=== PATIENT | female | born 1950 | race Caucasian/White ===

== ENCOUNTER 2020-01-01 22:55 | Emergency (ER) | payer MEDICARE ==
[2020-01-02] MEDS ORDERED: DIPH/PERTUSS(ACELL)/TETANUS VAC/PF 0.5 ML SYR (>=10YO) IM ONE
--- NOTE | 2020-01-02 00:02 | ER Document Report ---
ED Medical Screen (RME) - General Chief Complaint: Arm Injury Stated Complaint: POSSIBLE ARM INJURY Time Seen by Provider: 01/02/20 00:00 Notes: HPI: 69-year-old female who is on Eliquis presenting for evaluation of injury to the left forearm tonight. Patient rolled over in her bed when her phone rang and the bed collapsed landing partially on her left forearm. Patient states she sustained a skin tear on the forearm. Not up-to-date on tetanus vaccination. Denies other injuries or complaints. PHYSICAL EXAMINATION: Moderate bruising and soft tissue swelling to the dorsal left forearm. There is a superficial skin tear that is noted. Sensation intact in the fingertips with capillary refill less than 3 seconds. I have greeted and performed a rapid initial assessment of this patient. A comprehensive ED assessment and evaluation of the patient, analysis of test results and completion of medical decision making process will be conducted by an additional ED providers. Physical Exam - Vital signs Vitals: Temp Pulse Resp BP Pulse Ox 98.0 F 73 14 175/70 H 94 01/01/20 23:02 01/01/20 23:02 01/01/20 23:02 01/01/20 23:02 01/01/20 23:02 Course - Vital Signs Vital signs: Temp Pulse Resp BP Pulse Ox 98.0 F 73 14 175/70 H 94 01/01/20 23:02 01/01/20 23:02 01/01/20 23:02 01/01/20 23:02 01/01/20 23:02
--- NOTE | 2020-01-02 00:18 | ER Document Report ---
HPI - HPI Time Seen by Provider: 01/02/20 00:00 Pain Level: 4 Notes: CHIEF COMPLAINT: Left forearm injury HPI:69-year-old female who is on Eliquis presenting for evaluation of injury to the left forearm tonight. Patient rolled over in her bed when her phone rang and the bed collapsed landing partially on her left forearm. Patient states she sustained a skin tear on the forearm. Not up-to-date on tetanus vaccination. Denies other injuries or complaints. ROS: See HPI - all other systems were reviewed and are otherwise negative Constitutional: no fever Integumentary: Positive rash Allergy: no hives Musculoskeletal: Positive extremity pain or swelling Neurological: no numbness/tingling, no weakness MEDICATIONS: I agree with the patient medications as charted by the RN. ALLERGIES: I agree with the allergies as charted by the RN. PAST MEDICAL HISTORY/PAST SURGICAL HISTORY: Reviewed and agree as charted by RN. SOCIAL HISTORY: Reviewed and agree as charted by RN. FAMILY HISTORY: No significant familial comorbid conditions directly related to patient complaint EXAM: Reviewed vital signs as charted by RN. CONSTITUTIONAL: Alert and oriented and responds appropriately to questions. Well-appearing; well-nourished HEAD: Normocephalic; atraumatic EYES: Conjunctivae clear, sclerae non-icteric ENT: normal nose; no rhinorrhea; moist mucous membranes NECK: Supple without meningismus; non-tender; no cervical lymphadenopathy, no masses CARD: Capillary refill less than 3 seconds; symmetric distal pulses RESP: Normal chest excursion without splinting or tachypnea ABD/GI: Normal bowel sounds; non-distended; soft, non-tender BACK: The back appears normal and is non-tender to palpation, there is no CVA tenderness EXT: Normal ROM in all joints; moderate edema to the dorsal aspect of the left forearm with a superficial skin tear present. There is bruising present. Radial and ulnar pulses are present in the left wrist. No tenderness over the radial head of the left elbow. There is no snuffbox tenderness in the left wrist. Patient is able to fully flex and extend the fingers of the left hand as well as abduct the thumb. SKIN: Normal color for age and race; warm; dry; good turgor; no acute lesions noted NEURO: Moves all extremities equally; Motor and sensory function intact PSYCH: The patient's mood and manner are appropriate. Grooming and personal hygiene are appropriate. MDM: 69-year-old female with contusion to the left forearm, on Eliquis. On my review of the patient's x-ray there is no visible fracture. We will clean and dress the wound area. Update patient's tetanus status Past Medical History - Social History Smoking Status: Never Smoker Family History: Reviewed & Not Pertinent Patient has homicidal ideation: No Course - Vital Signs Vital signs: Temp Pulse Resp BP Pulse Ox 98 F 73 14 175/70 H 94 01/02/20 00:02 01/01/20 23:02 01/01/20 23:02 01/01/20 23:02 01/01/20 23:02 Discharge - Discharge Clinical Impression: Contusion of forearm, left Qualifiers: Encounter type: initial encounter Qualified Code(s): S50.12XA - Contusion of left forearm, initial encounter Condition: Stable Disposition: HOME, SELF-CARE Instructions: Contusion ([facility]) Additional Instructions: Clean the wound daily with soap and water apply small amount of antibiotic ointment and a dressing until healed. Apply cool compresses to the forearm to help with swelling and bruising over the next 48 hours. Follow-up with your primary care provider for reevaluation of symptoms call for appointment. Return for uncontrolled pain or worsening swelling of the forearm. X-ray imaging did not show evidence of a fracture today
--- NOTE | 2020-01-02 00:35 | RADIOLOGY REPORT (SQ) ---
CLINICAL INDICATION: trauma. Pain. TECHNIQUE: 2 view(s) were obtained of the left forearm. COMPARISON: None. FINDINGS: No acute displaced fracture is identified of the forearm. Alignment appears anatomic. Osteoarthritis. Soft tissue swelling. If wrist or elbow are clinically in suspicion, then dedicated radiography is advised. IMPRESSION: No evidence of acute displaced fracture of the forearm.
[2020-01-02 05:09] VITALS: BP 186/66
== END 2020-01-02 01:00 | disposition home or self-care (01) ==
LOC: ER 22:55
DX: S50.12XA Contusion of left forearm, initial encounter (principal); W23.0XXA Caught, crushed, jammed, or pinched between moving objects, initial encounter; Y92.009 Unspecified place in unspecified non-institutional (private) residence as the place of occurrence of the external cause; Z79.02 Long term (current) use of antithrombotics/antiplatelets; Z23 Encounter for immunization
CPT/HCPCS: 90471; 90715; 99283

== ENCOUNTER 2020-01-21 10:24 | Emergency (ER) | payer MEDICARE ==
--- NOTE | 2020-01-21 11:01 | RADIOLOGY REPORT (SQ) ---
EXAM DESCRIPTION: CHEST SINGLE VIEW IMAGES COMPLETED DATE/TIME: 01/21/2020 10:46 am REASON FOR STUDY: SOB COMPARISON: None. EXAM PARAMETERS: NUMBER OF VIEWS: One view. TECHNIQUE: Single frontal radiographic view of the chest acquired. RADIATION DOSE: NA LIMITATIONS: None. FINDINGS: LUNGS AND PLEURA: Small calcified granuloma left lung base. No acute pulmonary consolida tion. No pneumothorax or pleural effusion. MEDIASTINUM AND HILAR STRUCTURES: No masses. Contour normal. HEART AND VASCULAR STRUCTURES: Heart normal in size. Normal vasculature. BONES: No acute findings. HARDWARE: Surgical metallic clips at the base of the neck on the right. OTHER: No other significant finding. IMPRESSION: 1. NO ACUTE RADIOGRAPHIC FINDING IN THE CHEST. TECHNICAL DOCUMENTATION: JOB ID: [id number] 2010 [employer]- All Rights Reserved Reading location - IP/workstation name: [email or web address]
--- NOTE | 2020-01-21 11:36 | ER Document Report ---
ED General - General Chief Complaint: Asthma Exacerbation Stated Complaint: SHORTNESS OF BREATH/CHILLS Time Seen by Provider: 01/21/20 11:11 Mode of Arrival: Ambulatory Information source: Patient - HPI Notes: Patient presents with 2 main complaints. She states that she just moved here several days ago and is out of her medications. She states she has been under a lot of stress and that when she has stress she gets migraines. She states she currently has a migraine headache and is out of her medicines. The pain has been there for 2 days. It is constant. It is in the occipital part of her head. It is constant nothing makes it better or worse. It does feel like her previous migraine pain. Patient also complains of a mild nonproductive cough and some shortness of breath. She states she is out of her asthma medications. She does not know of any known covert virus exposures. - Related Data Allergies/Adverse Reactions: IVP dye Allergy (Uncoded 01/02/20 05:06) Past Medical History - General Information source: Patient - Social History Smoking Status: Never Smoker Frequency of alcohol use: None Drug Abuse: None Family History: Reviewed & Not Pertinent - Past Medical History Cardiac Medical History: Reports: Hx Hypercholesterolemia, Hx Hypertension Pulmonary Medical History: Reports: Hx Asthma Neurological Medical History: Reports: Hx Migraine Past Surgical History: Reports: Hx Appendectomy, Hx Hysterectomy, Hx To nsillectomy Review of Systems - Review of Systems Constitutional: Malaise, Weakness. denies: Chills Cardiovascular: denies: Chest pain, Palpitations Respiratory: Cough, Short of breath - Mild -: Yes All other systems reviewed and negative Physical Exam - Vital signs Vitals: Temp Pulse Resp BP Pulse Ox 99.7 F 87 22 H 150/68 H 95 01/21/20 10:39 01/21/20 10:39 01/21/20 10:39 01/21/20 10:39 01/21/20 10:39 Interpretation: Hypertensive - General General appearance: Appears well, Alert - HEENT Head: Normocephalic, Atraumatic Eyes: Normal Pupils: PERRL - Respiratory Respiratory status: No respiratory distress Chest status: Nontender Breath sounds: Wheezing - Expiratory greater on the left Chest palpation: Normal - Cardiovascular Rhythm: Regular Heart sounds: Normal auscultation Murmur: No - Abdominal Inspection: Normal Distension: No distension Bowel sounds: Normal Tenderness: Nontender Organomegaly: No organomegaly - Back Back: Normal, Nontender - Extremities General upper extremity: Normal inspection, Nontender, Normal color, Normal ROM, Normal temperature General lower extremity: Normal inspection, Nontender, Normal color, Normal ROM, Normal temperature, Normal weight bearing. No: Fatmata's sign - Neurological Neuro grossly intact: Yes Cognition: Normal Orientation: AAOx4 Thayer Coma Scale Eye Opening: Spontaneous Thayer Coma Scale Verbal: Oriented Thayer Coma Scale Motor: Obeys Commands Jada Coma Scale Total: 15 Speech: Normal Cranial nerves: Normal Cerebellar coordination: Normal. 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 No: Pronator drift Sensory: Normal - Psychological Associated symptoms: Normal affect, Normal mood - Skin Skin Temperature: Warm Skin Moisture: Dry Skin Color: Normal Course - Re-evaluation Re-evalutation: 01/21/20 11:28 Patient presents with a migraine. She states it feels her usual migraine. There are no worrisome parts of the history such as thunderclap onset or worst headache of her life. In addition her neurological exam is normal. I will refill her Maxalt and have her follow-up with primary care for this complaint. Patient also has a chronic history of asthma and is currently out of her medications. She does have some expiratory wheezes on exam. She states she has recently been traveling and just moved here 3 days ago. Therefore I will obtain a COVID test. I will also treat her with some steroids and refill her albuterol. I will also start her on a course of antibiotics. - Vital Signs Vital signs: Temp Pulse Resp BP Pulse Ox 99.7 F 87 22 H 150/68 H 95 01/21/20 10:39 01/21/20 10:39 01/21/20 10:39 01/21/20 10:39 01/21/20 10:39 Discharge - Discharge Clinical Impression: Acute asthma exacerbation Qualifiers: Asthma severity: moderate Asthma persistence: persistent Qualified Code(s): J45.41 - Moderate persistent asthma with (acute) exacerbation Migraine Qualifiers: Migraine type: without aura Status migrainosus presence: with status migrainosus Intractability: intractable Qualified Code(s): G43.011 - Migraine without aura, intractable, with status migrainosus Condition: Stable Disposition: HOME, SELF-CARE Instructions: Asthma ([facility]), Antibiotic Therapy ([facility]), Inhaled Bronchodilators ([facility]), Headache ([facility]) Additional Instructions: Please call [facility] as soon as possible to arrange follow up. If you have any further concerns before you can see a primary care provider please return to the emergency department for evaluation. Prescriptions: Sulfamethoxazole/Trimethoprim [Bactrim Ds Tablet] 1 each PO BID 7 Days #14 tablet Prednisone [Deltasone 20 mg Tablet] 60 mg PO DAILY 5 Days #15 tablet Albuterol Sulfate [Proair HFA Inhalation Aerosol 8.5 gm MDI] 2 puff IH Q4H PRN #1 mdi PRN Reason: Rizatriptan Benzoate [Rizatriptan] 10 mg PO Q2 PRN 10 Days #20 tab.rapdis PRN Reason: Ondansetron [Zofran Odt 4 mg Tablet] 1 - 2 tab PO Q4H PRN #15 tab.rapdis PRN Reason: For Nausea/Vomiting Forms: Return to Work Referrals: [facility] [Provider Group] - Follow up in 3-5 days
[2020-01-21 12:14] VITALS: BP 138/71
== END 2020-01-21 12:14 | disposition home or self-care (01) ==
LOC: ER 10:24
DX: J45.41 Moderate persistent asthma with (acute) exacerbation (principal); G43.011 Migraine without aura, intractable, with status migrainosus; R53.81 Other malaise; R53.1 Weakness; Z20.828 Contact with and (suspected) exposure to other viral communicable diseases; I10 Essential (primary) hypertension; E78.00 Pure hypercholesterolemia, unspecified; Z91.041 Radiographic dye allergy status
CPT/HCPCS: 99285; 36415; 71045; U0003; C9803; 87635

== ENCOUNTER 2020-03-17 05:30 | Emergency (ER) | payer MEDICARE ==
[2020-03-17] MEDS ORDERED: BUTALB/ACETAMINOPHEN/CAFFEINE 1 TAB EACH PO ONE (07:34)
[2020-03-17] MEDS ORDERED: APIXABAN 5 MG TABLET PO ONE (07:43)
[2020-03-17] MEDS ORDERED: ZIPRASIDONE HCL 40 MG CAPSULE PO ONE (07:43)
--- NOTE | 2020-03-17 07:54 | ER Document Report ---
Entered by KENTRELL GARCIA SCRIBE 03/17/20 0750 Acting as scribe for:MAXWELL BROWN MD ED General - General Chief Complaint: Blood Pressure Problem Stated Complaint: NAUSEA/DIARRHEA Time Seen by Provider: 03/17/20 07:10 Mode of Arrival: Ambulatory Information source: Patient Notes: This 69 year old female patient presents to the emergency department today with complaints of a headache. Patient initially mentions that she is here because she is "out of her medications because she just moved here from [place], [place]". She later mentioned that she had an appointment last night with her new PCP and he wrote her prescriptions for all her medication and it is waiting for pickup at the pharmacy. - Related Data Allergies/Adverse Reactions: IVP dye Allergy (Uncoded 01/02/20 05:06) Past Medical History - General Information source: Patient - Social History Smoking Status: Never Smoker Cigarette use (# per day): No Frequency of alcohol use: None Drug Abuse: None Lives with: Family Family History: Reviewed & Not Pertinent - Past Medical History Cardiac Medical History: Reports: Hx DVT, Hx Hypercholesterolemia, Hx Hypertension Pulmonary Medical History: Reports: Hx Asthma Neurological Medical History: Reports: Hx Migraine Psychiatric Medical History: Reports: Hx Bipolar Disorder Past Surgical History: Reports: Hx Appendectomy, Hx Hysterectomy, Hx Tonsillectomy Review of Systems - Review of Systems Constitutional: No symptoms reported EENT: No symptoms reported Cardiovascular: No symptoms reported Respiratory: No symptoms reported Gastrointestinal: No symptoms reported Genitourinary: No symptoms reported Female Genitourinary: No symptoms reported Musculoskeletal: No symptoms reported Skin: No symptoms reported Hematologic/Lymphatic: No symptoms reported Neurological/Psychological: See HPI, Headaches -: Yes All other systems reviewed and negative Physical Exam - Vital signs Vitals: Temp Pulse Resp BP Pulse Ox 98.1 F 83 20 147/89 H 98 03/17/20 06:09 03/17/20 06:09 03/17/20 06:09 03/17/20 06:09 03/17/20 06:09 - Notes Notes: Physical Exam: General: Alert, appears well. HEENT: Normocephalic. Atraumatic. PERRL. Extraocular movements intact. Or opharynx clear. Neck: Supple. Non-tender. Respiratory: No respiratory distress. Clear and equal breath sounds bilaterally. Cardiovascular: Regular rate and rhythm. Abdominal: Normal Inspection. Non-tender. No distension. Normal Bowel Sounds. Back: No gross abnormalities. Extremities: Moves all four extremities. Upper extremities: Normal inspection. Normal ROM. Lower extremities: Normal inspection. No edema. Normal ROM. Neurological: Normal cognition. AAOx4. Normal speech. Psychological: Normal affect. Normal Mood. Skin: Warm. Dry. Normal color. Course - Re-evaluation Re-evalutation: 03/17/20 08:37 The patient was evaluated during the global COVID-19 pandemic and that diagnosis was suspected/considered upon their initial presentation. Their evaluation, treatment and testing was consistent with current guidelines for patients who present with complaints or symptoms that may be related to COVID-19. 03/17/20 08:58 Reviewing pharmacy records shows that the patient has filled most of her medications in the last 2 months except that she would be out of her Geodon and Eliquis. I do not find the Eliquis having been filled so we do not know the dose of that. The Geodon was a 40 mg daily. The other essential medications were 90-day supplies filled in December. At this time the patient states she is feeling much better, she is smiling and appreciative of care. She states that she will go by the pharmacy to picking supervisor the medications that were called in last night and follow-up with her primary care provider. - Vital Signs Vital signs: Temp Pulse Resp BP Pulse Ox 98.8 F 79 20 119/70 97 03/17/20 06:33 03/17/20 06:33 03/17/20 06:33 03/17/20 06:33 03/17/20 06:33 - Laboratory Result Diagrams: 03/17/20 07:45 03/17/20 07:45 Laboratory results interpreted by me: 03/17/20 07:45 Glucose 117 H Discharge - Discharge Clinical Impression: Has run out of medications Tension type headache Qualifiers: Headache chronicity pattern: unspecified pattern Intractability: not intractable Qualified Code(s): G44.209 - Tension-type headache, unspecified, not intractable Bipolar disorder Qualifiers: Active/Remission status: remission status unspecified Qualified Code(s): F31.9 - Bipolar disorder, unspecified Condition: Stable Disposition: HOME, SELF-CARE Additional Instructions: Tension Headache Your problem has been diagnosed as muscle tension headache. This very common type of headache occurs because of tightness in the muscles of the head and neck. The cause may be neck or jaw joint problems, but most commonly the cause is emotional stress. The headache may last hours or days. The treatment of uncomplicated tension headaches is rest and pain medication. Often, the newer antiinflammatory pain medications are prescribed, as these also decrease the irritability of the painful tissues. Muscle relaxers, cold packs, or warm packs are sometimes helpful. Anti-anxiety medication or narcotics are sometimes needed temporarily, but are best avoided in the long run. Your doctor has evaluated your headache problem, and finds no evidence of a serious health problem as a cause for the headache. If your headache becomes more severe, or if new symptoms develop (such as fever, stiff neck, vomiting, or decreasing alertness) you should be re-examined by the physician. Be sure to picking supervisor the prescriptions your new primary care provider sent in to your pharmacy. Be sure to take all of your medications as prescribed. Follow-up with your primary care provider if not improving. RETURN TO THE EMERGENCY ROOM IF ANY NEW OR WORSENING SYMPTOMS. I personally performed the services described in the documentation, reviewed and edited the documentation which was dictated to the scribe in my presence, and it accurately records my words and actions.
[2020-03-17 08:05] LABS: ABSOLUTE EOSINOPHILS # (AUTO) 0.2 10^3/uL (0.0-0.6); ABSOLUTE LYMPHOCYTES (AUTO) 2.6 10^3/uL (0.5-4.7); ABSOLUTE MONOCYTES (AUTO) 0.8 10^3/uL (0.1-1.4); ABSOLUTE NEUT (AUTO) 6.1 10^3/uL (1.7-8.2); BASOPHILS % (AUTO) 0.3 % (0-2); EOSINOPHILS % (AUTO) 2.3 % (0-6); HEMATOCRIT 44.2 % (36.0-47.0); HEMOGLOBIN 15.2 g/dL (12.0-15.5); LYMPHOCYTES % (AUTO) 26.4 % (13-45); MEAN CORPUSCULAR HEMOGLOBIN 29.6 pg (27.0-33.4); MEAN CORPUSCULAR HGB CONC 34.3 g/dL (32.0-36.0); MEAN CORPUSCULAR VOLUME 86 fl (80-97); MONOCYTES % (AUTO) 8.7 % (3-13); PLATELET COUNT 245 10^3/uL (150-450); RED BLOOD COUNT 5.12 10^6/uL (3.72-5.28); SEGMENTED NEUTROPHILS % (AUTO) 62.3 % (42-78); TOTAL CELLS COUNTED % (AUTO) 100 %; WHITE BLOOD COUNT 9.8 10^3/uL (4.0-10.5)
[2020-03-17 08:24] LABS: ALBUMIN 4.5 g/dL (3.5-5.0); ALKALINE PHOSPHATASE 51 U/L (38-126); ANION GAP 8 (5-19); ASPARTATE AMINO TRANSFERASE 28 U/L (14-36); BILIRUBIN,TOTAL 0.5 mg/dL (0.2-1.3); BLOOD UREA NITROGEN 13 mg/dL (7-20); CALCIUM 9.8 mg/dL (8.4-10.2); CARBON DIOXIDE 27 mmol/L (22-30); CHLORIDE 105 mmol/L (98-107); GLUCOSE 117 mg/dL (75-110); POTASSIUM 4.1 mmol/L (3.6-5.0); TOTAL PROTEIN 7.3 g/dL (6.3-8.2)
[2020-03-17 09:40] VITALS: BP 124/69
== END 2020-03-17 09:35 | disposition home or self-care (01) ==
LOC: ER 05:30
DX: G44.209 Tension-type headache, unspecified, not intractable (principal); F31.9 Bipolar disorder, unspecified; R11.0 Nausea; R19.7 Diarrhea, unspecified
CPT/HCPCS: 99283; 36415; 85025; 80053; A9270 ×3; J3490

== ENCOUNTER 2020-08-17 05:01 | Emergency (ER) | payer MEDICARE ==
[2020-08-17] MEDS ORDERED: NORMAL SALINE 1000 ML 1,000 ML IV ONE (07:45)
[2020-08-17] MEDS ORDERED: MORPHINE SULFATE 10 MG/ML INJ IV ONE (07:45)
[2020-08-17] MEDS ORDERED: ONDANSETRON HCL INJ/PF 4 MG/2 ML SDV IV ONE (07:46)
--- NOTE | 2020-08-17 07:53 | ER Document Report ---
Entered by MARLA CHAPMAN SCRIBE 08/17/20 0737 Acting as scribe for:MAXWELL BROWN MD ED GI/ - General Chief Complaint: Abdominal Pain >50 Stated Complaint: SEVERE ABDOMINAL PAIN Time Seen by Provider: 08/17/20 07:36 Mode of Arrival: Ambulatory Information source: Patient Notes: This 70 year old female patient presents to the ED today with complaints of LLQ abdominal pain that started yesterday morning. Denies fever, nausea, vomiting, or urinary retention. Denies similar symptoms in the past. Denies history of diverticulitis or diverticulosis. - Related Data Allergies/Adverse Reactions: IVP dye Allergy (Uncoded 08/17/20 05:15) Home Medications: "YOU SHOULD HVE THEM IN" Past Medical History - General Information source: Patient, [facility] - Social History Smoking Status: Never Smoker Cigarette use (# per day): No Chew tobacco use (# tins/day): No Smoking Education Provided: No Frequency of alcohol use: None Drug Abuse: None Family History: Reviewed & Not Pertinent - Past Medical History Cardiac Medical History: Reports: Hx DVT, Hx Hypercholesterolemia, Hx Hypertension Pulmonary Medical History: Reports: Hx Asthma Neurological Medical History: Reports: Hx Migraine Psychiatric Medical History: Reports: Hx Bipolar Disorder Past Surgical History: Reports: Hx Appendectomy, Hx Hysterectomy - partial, 1975, Hx Thyroid Surgery, Hx Tonsillectomy Review of Systems - Review of Systems Constitutional: denies: Fever EENT: No symptoms reported Cardiovascular: No symptoms reported Respiratory: No symptoms reported Gastrointestinal: See HPI, Abdominal pain. denies: Nausea, Vomiting Genitourinary: See HPI. denies: Retention Female Genitourinary: No symptoms reported Musculoskeletal: No symptoms reported Skin: No symptoms reported Hematologic/Lymphatic: No symptoms reported Neurological/Psychological: No symptoms reported -: Yes All other systems reviewed and negative Physical Exam - Vital signs Vitals: Temp Pulse Resp BP Pulse Ox 99.0 F 97 19 146/77 H 96 08/17/20 05:09 08/17/20 05:09 08/17/20 05:09 08/17/20 05:09 08/17/20 05:09 - General General appearance: Alert In distress: None - HEENT Head: Normocephalic, Atraumatic Eyes: Normal Extraocular movements intact: Yes Pupils: PERRL Neck: Normal, Supple - Respiratory Respiratory status: No respiratory distress Chest status: Nontender Breath sounds: Normal Chest palpation: Normal - Cardiovascular Rhythm: Regular Heart sounds: Normal auscultation Murmur: No - Abdominal Inspection: Normal Distension: No distension Bowel sounds: Normal - Percussion resonant Tenderness: Tender - Point tenderness in the left lower quadrant. Palpating the right lower quadrant causes pain in the left lower quadrant., Other - Abdomen soft Organomegaly: No organomegaly - Back Back: Normal, Nontender. No: CVA tenderness - Extremities General upper extremity: Normal inspection General lower extremity: Normal inspection. No: Edema - Neurological Neuro grossly intact: Yes Orientation: AAOx4 K[place]um Coma Scale Eye Opening: Spontaneous Jada Coma Scale Verbal: Oriented K[place]um Coma Scale Motor: Obeys Commands Ketchum Coma Scale Total: 15 - Psychological Associated symptoms: Normal affect, Normal mood - Skin Skin Temperature: Warm Skin Moisture: Dry Skin Color: Normal Course - Vital Signs Vital signs: Temp Pulse Resp BP Pulse Ox 98.3 F 81 14 143/71 H 95 08/17/20 10:24 08/17/20 10:24 08/17/20 10:24 08/17/20 10:24 08/17/20 10:24 - Laboratory Results Result Diagrams: 08/17/20 07:47 08/17/20 07:47 Laboratory Results Interpreted: 08/17/20 08/17/20 08/17/20 07:47 07:47 08:16 RBC 5.33 H Carbon Dioxide 32 H Anion Gap 4 L Glucose 126 H Lipase 520.6 H Ur Leukocyte Esterase MODERATE H Critical Laboratory Results Reviewed: No Critical Results - Radiology Results Radiology Results Interpreted: 08/17/20 10:[address] scan of the abdomen pelvis shows diverticulosis without diverticulitis. No other abnormalities. Critical Radiology Results Reviewed: No Critical Results Discharge - Discharge Clinical Impression: Left lower quadrant abdominal pain Condition: Stable Disposition: HOME, SELF-CARE Additional Instructions: Abdominal Pain There are many causes of abdominal pain. Pain can mean a serious problem requiring surgery (such as appendicitis). It can also be an innocent problem that goes away on its own (such as a viral infection). Often, time must pass to determine the cause of pain. The physician does not feel that hospitalization is necessary, at present. Things may change within the next 24 hours. Call the doctor or come back for re- examination if any problems occur, such as: (1) Pain that becomes more severe, steady, or becomes concentrated in one specific area. Also, pain that is more severe with movement or coughing. (2) Vomiting that persists or becomes more frequent. (3) Blood in the vomitus, urine, or bowel movements. Blood in the stool may have a tarry or black appearance. (4) Shaking chills or fever greater than 100 degrees F. (5) The abdomen becomes more distended or swollen. (6) Bowel movements cease. (7) Failure to improve as expected. The CT scan of your abdomen pelvis today did not show any abnormalities that could be causing your pain. Your lab work was unremarkable, there was no suggestion of infection. Your pain is likely due to a muscle strain in your lower abdomen. Take Tylenol for discomfort, be sure to drink plenty of fluids. Follow-up with your primary care provider in the next few days if you are not improving. RETURN TO THE EMERGENCY ROOM IF ANY NEW OR WORSENING SYMPTOMS. I personally performed the services described in the documentation, reviewed and edited the documentation which was dictated to the scribe in my presence, and it accurately records my words and actions.
[2020-08-17 07:58] LABS: ABSOLUTE BASOPHILS # (AUTO) 0.1 10^3/uL (0.0-0.2); ABSOLUTE EOSINOPHILS # (AUTO) 0.4 10^3/uL (0.0-0.6); ABSOLUTE LYMPHOCYTES (AUTO) 2.6 10^3/uL (0.5-4.7); ABSOLUTE MONOCYTES (AUTO) 0.7 10^3/uL (0.1-1.4); ABSOLUTE NEUT (AUTO) 4.1 10^3/uL (1.7-8.2); EOSINOPHILS % (AUTO) 5.2 % (0-6); HEMATOCRIT 45.5 % (36.0-47.0); HEMOGLOBIN 15.4 g/dL (12.0-15.5); LYMPHOCYTES % (AUTO) 32.9 % (13-45); MEAN CORPUSCULAR HEMOGLOBIN 28.9 pg (27.0-33.4); MEAN CORPUSCULAR HGB CONC 33.9 g/dL (32.0-36.0); MEAN CORPUSCULAR VOLUME 85 fl (80-97); MONOCYTES % (AUTO) 8.7 % (3-13); PLATELET COUNT 221 10^3/uL (150-450); RED BLOOD COUNT 5.33 10^6/uL (3.72-5.28); RED CELL DISTRIBUTION WIDTH 13.4 % (11.5-14.0); SEGMENTED NEUTROPHILS % (AUTO) 52.2 % (42-78); TOTAL CELLS COUNTED % (AUTO) 100 %; WHITE BLOOD COUNT 7.9 10^3/uL (4.0-10.5)
[2020-08-17 08:14] LABS: ALBUMIN 4.3 g/dL (3.5-5.0); ALKALINE PHOSPHATASE 68 U/L (38-126); ASPARTATE AMINO TRANSFERASE 32 U/L (14-36); BILIRUBIN,DIRECT 0.2 mg/dL (0.0-0.4); BILIRUBIN,TOTAL 0.4 mg/dL (0.2-1.3); BLOOD UREA NITROGEN 13 mg/dL (7-20); CALCIUM 9.7 mg/dL (8.4-10.2); GLUCOSE 126 mg/dL (75-110); POTASSIUM 4.2 mmol/L (3.6-5.0)
[2020-08-17 08:20] LABS: ANION GAP 4 (5-19); CARBON DIOXIDE 32 mmol/L (22-30); CHLORIDE 105 mmol/L (98-107)
[2020-08-17 08:45] LABS: APPEARANCE,URINE SLIGHTLY-CLOUDY; BILIRUBIN,URINE NEGATIVE (NEGATIVE); COLOR,URINE YELLOW; GLUCOSE, URINE NEGATIVE (NEGATIVE); KETONES,URINE NEGATIVE (NEGATIVE); LEUKOCYTE ESTERASE,URINE MODERATE (NEGATIVE); NITRITE,URINE NEGATIVE (NEGATIVE); PROTEIN,URINE NEGATIVE (NEGATIVE); URINE SPECIFIC GRAVITY 1.017; UROBILINOGEN,URINE NEGATIVE mg/dL (<2.0)
[2020-08-17] MEDS ORDERED: METHYLPREDNISOLONE INJ 125 MG/2 ML SDV IV ONE (09:12)
[2020-08-17] MEDS ORDERED: DIPHENHYDRAMINE HCL 50 MG/ML VIAL IV ONE (09:12)
[2020-08-17] MEDS ORDERED: FAMOTIDINE INJ/PF 20 MG/2 ML SDV IV ONE (09:12)
--- NOTE | 2020-08-17 10:12 | RADIOLOGY REPORT (SQ) ---
EXAM DESCRIPTION: CT ABD/PELVIS WITH IV ONLY IMAGES COMPLETED DATE/TIME: 08/17/2020 10:02 am REASON FOR STUDY: LLQ abd pain COMPARISON: None. TECHNIQUE: CT scan of the abdomen and pelvis performed using helical scanning technique with dynamic intravenous contrast injection. No oral contrast. Images reviewed with lung, soft tissue, and bone windows. Reconstructed coronal and sagittal MPR images reviewed. Delayed images for evaluation of the urinary system also acquired. All images stored on PACS. All CT scanners at this facility use dose modulation, iterative reconstruction, and/or weight based d osing when appropriate to reduce radiation dose to as low as reasonably achievable (ALARA). [facility]: Dose Right [facility]: CareDose [facility]: Dose Right [facility]: Teradose 4D [facility]: [email or web address] CONTRAST TYPE AND DOSE: contrast/concentration: Isovue 350.00 mmol/ml; Total Contrast Delivered: 83. 0 ml; Total Saline Delivered: 60.8 ml RENAL FUNCTION: GFR > 60. RADIATION DOSE: CT Rad equipment meets quality standard of care and radiation dose reduction techniq ues were employed. CTDIvol: NaN mGy. DLP: 0 mGy-cm.. LIMITATIONS: None. FINDINGS: LOWER CHEST: No significant findings. No nodules or infiltrates. LIVER: Normal size. Mild fatty change. No masses. No dilated ducts. SPLEEN: Normal size. No focal lesions. PANCREAS: No masses. No significant calcifications. No adjacent inflammation or peripancreatic fluid collections. Pancreatic duct not dilated. GALLBLADDER: No identified stones by CT criteria. No inflammatory changes to suggest cholecystitis. ADRENAL GLANDS: No significant masses or asymmetry. RIGHT KIDNEY AND URETER: No solid masses. No significant calcifications. No hydronephrosis or hyd roureter. LEFT KIDNEY AND URETER: No solid masses. No significant calcifications. No hydronephrosis or hydr oureter. AORTA AND VESSELS: No aneurysm. No dissection. Renal arteries, SMA, celiac without stenosis. RETROPERITONEUM: No retroperitoneal adenopathy, hemorrhage or masses. BOWEL AND PERITONEAL CAVITY: Diverticulosis descending and sigmoid colon. No masses or inflammatory changes. No free fluid or peritoneal masses. APPENDIX: Surgically absent. PELVIS: No mass. Prior hysterectomy. No free fluid. Normal bladder. ABDOMINAL WALL: Small fat containing umbilical hernia. BONES: No significant or acute findings. OTHER: No other significant finding. IMPRESSION: No acute findings. Diverticulosis without evidence of diverticulitis. TECHNICAL DOCUMENTATION: JOB ID: [id number] Quality ID # [id number]: Final reports with documentation of one or more dose reduction techniques (e.g., Au tomated exposure control, adjustment of the mA and/or kV according to patient size, use of iterative reconstruction technique) 2010 [employer]- All Rights Reserved Reading location - IP/workstation name: [email or web address]
[2020-08-17 10:25] VITALS: BP 143/71
== END 2020-08-17 10:56 | disposition home or self-care (01) ==
LOC: ER 05:01
DX: R10.32 Left lower quadrant pain (principal); R10.814 Left lower quadrant abdominal tenderness; K57.30 Diverticulosis of large intestine without perforation or abscess without bleeding; J45.909 Unspecified asthma, uncomplicated; I10 Essential (primary) hypertension; Z90.49 Acquired absence of other specified parts of digestive tract; Z90.711 Acquired absence of uterus with remaining cervical stump; Z91.041 Radiographic dye allergy status
CPT/HCPCS: 99285; 96361; 96374; 96375; 36415; 83690; 85025; 80053; 81001; 74177; J1200; J2930; J2270; J2405; J7030; S0028